=== PATIENT | female | born 1995 | race Caucasian/White ===

== ENCOUNTER 2017-05-03 19:00 | Emergency (ER) | payer OTHER ==
[~2017-05-03] VITALS: Ht 165.1 cm; Wt 76.5 kg
[2017-05-03 19:02] VITALS: BP 149/67; TEMP 99.1
[2017-05-03] MEDS ORDERED: ZOLOFT 50MG50 MG PO (19:06)
[2017-05-03] MEDS ORDERED: XANAX .25M0.25 MG/TA PO (19:06)
[2017-05-03] MEDS ORDERED: SMZ/TMPDS PO (19:07)
[2017-05-03 19:41] VITALS: PULSE 99
== END 2017-05-03 19:41 | disposition home or self-care (01) ==
LOC: COL.ER 19:00
DX: N39.0 Urinary tract infection, site not specified (principal); K59.00 Constipation, unspecified; Z87.19 Personal history of other diseases of the digestive system; Z90.49 Acquired absence of other specified parts of digestive tract

== ENCOUNTER 2019-07-19 11:29 | Emergency (ER) | payer OTHER ==
[~2019-07-19] VITALS: Ht 165.1 cm; Wt 86.4 kg
[~2019-07-19 11:29] MED LIST: SMZ/TMPDS PO; XANAX .25M0.25 MG/TA PO; ZOLOFT 50MG50 MG PO
[2019-07-19 11:33] VITALS: BP 131/79
[2019-07-19 12:34] LABS: HEMATOCRIT 40.6 % (37.0-47.0); HEMOGLOBIN 13.6 g/dl (12.5-16.0); MEAN CELL VOLUME 84 fl (80.0-100.0); MEAN CORPUSCULAR HEMOGLOBIN 28 pg (27.0-31.0); MEAN CORPUSCULAR HGB CONC 34 g/dl (33.0-37.0); MEAN PLATELET VOLUME 10.3 fl (7.4-10.4); PLATELET COUNT 253 K/mm3 (130-400); RED BLOOD COUNT 4.82 M/mm3 (4.10-5.30); REDCELL DISTRIBUTION WIDTH-CV 12.5 % (11.5-14.5)
[2019-07-19 12:55] LABS: CALCIUM 9.9 mg/dL (8.4-10.2); CREATININE, serum 0.61 (0.52-1.25); POTASSIUM 4.1 mmol/L (3.4-5.0)
[2019-07-19 13:06] LABS: BAND 12 % (0-10); LYMPHOCYTE 9 % (20.0-51.0); NEUTROPHILS 77 % (42.0-75.2); PLATELET ESTIMATE NORMAL (NORMAL)
[2019-07-19 14:35] VITALS: PULSE 82; TEMP 98.7
== END 2019-07-19 14:35 | disposition home or self-care (01) ==
LOC: COL.ER 11:29
PROVIDERS: Physician Assistant
DX: N63.0 Unspecified lump in unspecified breast (principal); R05 Cough; R79.1 Abnormal coagulation profile; F41.9 Anxiety disorder, unspecified; K58.9 Irritable bowel syndrome, unspecified; Z90.89 Acquired absence of other organs; Z88.1 Allergy status to other antibiotic agents
CPT/HCPCS: J7030; Q9967

== ENCOUNTER → 2019-07-22 | Outpatient (CLI) | payer OTHER | LOC: MC.RAD 09:30 | DX: N63.12 Unspecified lump in the right breast, upper inner quadrant (principal) ==